=== PATIENT | male | born 1990 | race Hispanic/Latino ===

== ENCOUNTER 2023-07-25 20:43 | Emergency (ER) | payer OTHER, SELFPAY ==
[2023-07-25] MEDS ORDERED: Lidocaine 1% MPF 2 ML VIAL ONE (22:09)
[2023-07-25] MEDS ORDERED: Doxycycline 100 MG CAP ONE (22:09)
[2023-07-25] MEDS ORDERED: cefTRIAXone (ROCEPHIN) 500 MG VIAL ONE (22:09)
[2023-07-25 22:19] LABS: Bacteria/HPF None Seen HPF (None Seen); Bilirubin Negative (Negative); Blood, Urine Negative (Negative); CAUTI Indications for Culture Dysuria,urgency,freq; Clarity Turbid (Clear); Glucose, Urine (Dipstick) Normal (Negative); Ketone, Urine Negative (Negative); Leukocyte Negative Leu/uL (Negative); Nitrite Negative (Negative); Protein, Urine (Dipstick) Negative (Neg-Trace); RBC/HPF None Seen HPF (0-3); Squamous Epithelial None Seen HPF (0-3); Urobilinogen Normal mg/dL (Less than 2); WBC/HPF None Seen HPF (0-3); pH, Urine 6.5 (5.0-9.0)
[2023-07-25 22:21] LABS: Urine Culture Reflex No No
[2023-07-26 05:37] LABS: Chlam.trachomatis by PCR,Urine Not Detected (NotDetected); GC N.gonorrhoeae PCR,UrineVOID Not Detected (NotDetected)
== END 2023-07-26 00:50 | disposition home or self-care (01) ==
LOC: ERS 20:43
DX: N34.1 Nonspecific urethritis (principal)
CPT/HCPCS: 81001; 87491; 87591; 96372; 99283; J0696